=== PATIENT | male | born 1990 | race Caucasian/White ===

== ENCOUNTER 2018-02-12 18:15 | Emergency (ER) | payer SELFPAY ==
[~2018-02-12] VITALS: Ht 182.9 cm; Wt 88.6 kg
[2018-02-12 18:26] VITALS: BP 143/63
--- NOTE | 2018-02-12 18:45 | NUR ---
PATIENT PRESENTS TO ED WITH c/o persistant productive cough, green phlegm, bodyaches, fatigue x 2 wks, symptoms worsen, decreased appetite, PATIENT STATES GENERALIZED BODY ACHING 8/10 AT THIS TIME; VSS; ER MD MADE AWARE OF PT STATUS.
--- NOTE | 2018-02-12 19:03 | NUR ---
Patient being evaluated by physician at bedside.
[2018-02-12] MEDS ORDERED: cefTRIAXone 1,000 MG in LIDOCAINE MPF 1% - **ER/OR** 2.1 ML IM ONE (19:10)
[2018-02-12] MEDS ORDERED: predniSONE 20 MG TAB PO ONE (19:10)
[2018-02-12 19:51] VITALS: BP 143/63
--- NOTE | 2018-02-12 19:51 | NUR ---
Patient discharged with v/s stable without SOB, Dyspnea, or fever. Written and verbal after care instructions given and explained.Patient alert, oriented and verbalized understanding of instructions. Ambulatory with steady gait. All questions addressed prior to discharge. ID band removed. Patient advised to follow up with PMD. Rx of Prednisone, Proair HFA, Promethazine DM, and Azirthromycin given. Patient educated on indication of medication including possible reaction and side effects. Opportunity to ask questions provided and answered.
== END 2018-02-12 19:51 | disposition home or self-care (01) ==
LOC: MED 18:29
DX: J20.9 Acute bronchitis, unspecified (principal); J45.909 Unspecified asthma, uncomplicated
CPT/HCPCS: 96372; 99283; J0696; J2001; J7512

== ENCOUNTER 2018-05-31 19:21 | Emergency (ER) | payer SELFPAY ==
[~2018-05-31] VITALS: Ht 185.4 cm; Wt 86.2 kg
[2018-05-31 19:25] VITALS: BP 147/86
--- NOTE | 2018-05-31 19:27 | NUR ---
TO BED # 5 AMBULATORY, REPORT GIVEN TO INO DASH
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
--- NOTE | 2018-05-31 19:37 | NUR ---
Dr. Lopez evaluating patient at bedside.
[2018-05-31] MEDS ORDERED: ONDANSETRON 4 MG ODT PO ONE (19:50)
[2018-05-31] MEDS ORDERED: KETOROLAC 30 MG/ML VIAL IM ONE (19:50)
--- NOTE | 2018-05-31 20:09 | NUR ---
PT RETURN FROM CT
[2018-05-31 20:27] VITALS: BP 142/70
== END 2018-05-31 20:27 | disposition home or self-care (01) ==
LOC: MED 19:21
DX: F07.81 Postconcussional syndrome (principal)
CPT/HCPCS: 70450; 96372; 99284; J1885; S0119

== ENCOUNTER 2018-10-02 17:07 | Emergency (ER) | payer SELFPAY ==
[~2018-10-02] VITALS: Ht 185.4 cm; Wt 86.2 kg
[2018-10-02 17:32] VITALS: BP 157/94
--- NOTE | 2018-10-02 18:14 | NUR ---
WAIT IN LOBBY
--- NOTE | 2018-10-02 18:20 | NUR ---
28Y/M BIB SELF C/O PANIC ATTACK: TINGLING ,NUMBNESS WHOLE BODY X TODAY. STOP SMOKING WEED X 1 WEEK AGO. DENIES N/V/D. PT IS AAOX4, VSS AT THIS TIME, BED DOWN, BEDRAIL UP X 1, ER MD AWARE AND NOTIFIED OF PT STATUS. HX: PANIC ATTACK, ANXIETY MED: [id number]
--- NOTE | 2018-10-02 19:10 | NUR ---
got report from dawit DASH. patient in bed, VSS, patient denies pain. Will continue to monitor
[2018-10-02 19:57] LABS: BASOPHILS % (AUTO) 0.3 % (0.0-2.0); EOSINOPHILS # (AUTO) 0.1 K/uL (0-0.4); EOSINOPHILS % (AUTO) 0.9 % (0.0-4.0); HEMATOCRIT 46.9 % (36-52); HEMOGLOBIN 15.6 g/dL (12.0-18.0); MEAN CORPUSCULAR HEMOGLOBIN 29 pg (27-31); MEAN CORPUSCULAR HGB CONC 33 g/dL (33-37); MONOCYTES # (AUTO) 0.5 K/uL (0.8-1.0); MONOCYTES % (AUTO) 6.4 % (1.7-9.3); NEUTROPHILS # (AUTO) 5.7 K/uL (1.8-7.7); NEUTROPHILS % (AUTO) 68.4 % (42.2-75.2); PLATELET COUNT (AUTO) 119 K/uL (140-450); RED BLOOD CELL COUNT(AUTO) 5.39 MIL/uL (4.20-6.10); RED CELL DISTRIBUTION WIDTH 13.5 % (11.6-13.7); WHITE BLOOD COUNT (AUTO) 8.3 K/uL (4.8-10.8)
[2018-10-02 20:06] LABS: ANION GAP 12.7 (8-16); CARBON DIOXIDE 26.6 mmol/L (21-32); CREATININE 1.1 mg/dL (0.7-1.3); POTASSIUM 4.3 mmol/L (3.5-5.1)
[2018-10-02 20:12] LABS: ALBUMIN 4.5 g/dL (3.4-5.0); TOTAL BILIRUBIN 0.3 mg/dL (0.0-1.0)
[2018-10-02 20:21] LABS: BARBITURATE, URINE NEG. ng/ml (NEG <=200); BENZODIAZEPINE, URINE NEG. ng/mL (NEG <=200); CANNABINOID, URINE NEG. ng/mL (NEG <=50); COCAINE, URINE NEG. ng/mL (NEG <=300); OPIATE, URINE NEG. ng/mL (NEG <=2000); PHENCYCLIDINE SCREEN,URINE NEG. ng/mL (NEG <=25)
--- NOTE | 2018-10-02 20:57 | NUR ---
PA WITH PT AT BEDSIDE
[2018-10-02 21:05] VITALS: BP 146/82
--- NOTE | 2018-10-02 21:05 | NUR ---
Patient discharged with v/s stable. Written and verbal after care instructions given and explained. Patient verbalized understanding. Ambulatory with steady gait. All questions addressed prior to discharge. Advised to follow up with PMD.
== END 2018-10-02 21:05 | disposition home or self-care (01) ==
LOC: MED 17:07
DX: F41.9 Anxiety disorder, unspecified (principal)
CPT/HCPCS: 36415; 71045; 80053; 80305; 81002; 84484; 85025; 93005; 99284; Q0092

== ENCOUNTER 2020-01-17 18:24 | Emergency (ER) | payer MEDICAID ==
[~2020-01-17] VITALS: Ht 185.4 cm; Wt 89.4 kg
[2020-01-17 18:37] VITALS: BP 148/76
--- NOTE | 2020-01-17 18:52 | NUR ---
PT AMBULATED TO ER BED 04
--- NOTE | 2020-01-17 18:59 | NUR ---
29 Y/M PRESENTS TO ED FOR R LOW BACK PAIN AND L LOW BACK PAIN X 5 DAY. PT REPORTS 9/10 SHARP PAIN THAT IS WORSE ON THE R SIDE. PT REPORTS IT HAPPENED AFTER WORKOUT, AND REPORTS HE DID NOT STRETCH HE USUALLY DOES. DENIES ANY MEDICATIONS USE. DENIES DYURIA OR FREQUENCY. RR EVEN AND UNLABORED. ABDOMEN SOFT. SKIN INTACT. NKDA RX DENIES PMH- ANXIETY
[2020-01-17] MEDS ORDERED: KETOROLAC 60 MG/2 ML VIAL IM ONE (20:20)
[2020-01-17 20:40] VITALS: BP 149/66
--- NOTE | 2020-01-17 20:40 | NUR ---
Patient discharged with v/s stable. Written and verbal after care instructions given and explained. Patient alert, oriented and verbalized understanding of instructions. Ambulatory with steady gait. All questions addressed prior to discharge. ID band removed. Patient advised to follow up with PMD. Rx of NAPROXEN given. Patient educated on indication of medication including possible reaction and side effects. Opportunity to ask questions provided and answered. DISCHARGED BY DR OWENS.
== END 2020-01-17 20:40 | disposition home or self-care (01) ==
LOC: MED 18:24
DX: S39.011A Strain of muscle, fascia and tendon of abdomen, initial encounter (principal); F41.9 Anxiety disorder, unspecified; X58.XXXA Exposure to other specified factors, initial encounter; Y93.89 Activity, other specified; Y92.89 Other specified places as the place of occurrence of the external cause; Y99.8 Other external cause status
CPT/HCPCS: 96372; 99283; J1885

== ENCOUNTER 2020-04-28 18:42 | Emergency (ER) | payer SELFPAY ==
[~2020-04-28] VITALS: Ht 185.4 cm; Wt 89.4 kg
[2020-04-28 18:50] VITALS: BP 149/87
--- NOTE | 2020-04-28 18:55 | NUR ---
PATIENT AMBULATED TO BED 5.
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
--- NOTE | 2020-04-28 19:41 | NUR ---
SANJU TURCIOS MADE AWARE PT STILL IN PAIN
[2020-04-28] MEDS ORDERED: KETOROLAC 30 MG/ML VIAL IM ONE (19:45)
--- NOTE | 2020-04-28 20:34 | NUR ---
Patient discharged with v/s stable. Written and verbal after care instructions given and explained. Patient alert, oriented and verbalized understanding of instructions. Ambulatory with steady gait. All questions addressed prior to discharge. ID band removed. Patient advised to follow up with PMD. Rx of motrin given. Patient educated on indication of medication including possible reaction and side effects. Opportunity to ask questions provided and answered.Pt no other concerns, talks in full sentnces, calm and d/c
[2020-04-28 20:45] VITALS: BP 121/78
== END 2020-04-28 20:34 | disposition home or self-care (01) ==
LOC: MED 18:42
DX: R07.9 Chest pain, unspecified (principal); F41.9 Anxiety disorder, unspecified; R03.0 Elevated blood-pressure reading, without diagnosis of hypertension
CPT/HCPCS: 71045; 93005; 96372; 99283; J1885; Q0092

== ENCOUNTER 2021-12-10 12:53 | Emergency (ER) | payer SELFPAY ==
[~2021-12-10] VITALS: Ht 182.9 cm; Wt 86.2 kg
[2021-12-10 13:27] VITALS: BP 150/87
--- NOTE | 2021-12-10 13:30 | NUR ---
ASHLEY FROM HOME C/O PANIC ATTACK & NAUSEA, 02/20 FORREST, CHILLS , ABD PAIN X TODAY. PMH: ANXIETY
[2021-12-10] MEDS ORDERED: ACETAMINOPHEN EXTRA STRENGTH 500 MG TAB PO ONE (13:35)
[2021-12-10] MEDS ORDERED: ACETAMINOPHEN EXTRA STRENGTH 500 MG TAB ONE (13:36)
--- NOTE | 2021-12-10 14:30 | NUR ---
ORAL TEMP 100.9
[2021-12-10] MEDS ORDERED: ACET-10509 PO ×3 (14:39→14:58)
--- NOTE | 2021-12-10 14:47 | NUR ---
COVID PCR SWAB DONE.
[2021-12-10 15:21] VITALS: BP 155/76
== END 2021-12-10 14:53 | disposition home or self-care (01) ==
LOC: MED 12:53
DX: F50.9 Eating disorder, unspecified (principal); F41.9 Anxiety disorder, unspecified; Z20.822 Contact with and (suspected) exposure to COVID-19
CPT/HCPCS: 99283; U0003